=== PATIENT | female | born 1940 | race Caucasian/White ===

== ENCOUNTER → 2017-09-26 14:00 | Outpatient (REF) | payer MEDICARE, SELFPAY ==
[2017-09-26 18:22] LABS: Color, Urine Yellow (Yellow); Glucose, Dipstick Normal (Normal); Ketone-Dipstick 5 mg/dl (Negative); Leukocyte Esterase-Dipstick 500 /ul (Negative); Nitrite-Dipstick Negative (Negative); Occult Blood-Urine 25 /ul (Negative); Protein-Dipstick 30 mg/dl (Negative); Urine Bilirubin Dipstick Negative (Negative); Urine Clarity Turbid (Clear); Urine Urobilinogen Normal (Normal)
== END ==
LOC: OLS.ACW400 14:00
PROVIDERS: Visit Provider Family Medicine
DX: Z47.89 Encounter for other orthopedic aftercare (principal); S72.142A Displaced intertrochanteric fracture of left femur, initial encounter for closed fracture; R29.6 Repeated falls
CPT/HCPCS: 81002; 87077; 87086; 87088; 87186